=== PATIENT | male | born 1995 | race African-American/Black ===

== ENCOUNTER 2023-09-16 19:48 | Emergency (ER) | payer SELFPAY ==
[2023-09-16 21:18] LABS: SARS-CoV-2 NAA Rapid Test Not Detected (NotDetected)
[2023-09-16] MEDS ORDERED: Ketorolac Tromethamine 30 MG/ML VIAL ONE (22:02)
== END 2023-09-16 21:57 | disposition home or self-care (01) ==
LOC: CSHERS 19:48
DX: J11.1 Influenza due to unidentified influenza virus with other respiratory manifestations (principal); F17.210 Nicotine dependence, cigarettes, uncomplicated; Z20.822 Contact with and (suspected) exposure to COVID-19
CPT/HCPCS: 87081; 87430; 96372; 99283; J1885